=== PATIENT | male | born 1975 | race American Indian/Alaskan Native ===

== ENCOUNTER 2018-12-30 02:37 | Emergency (ER) | payer SELFPAY ==
--- NOTE | 2018-12-30 03:05 | Emergency Department Report ---
ED Neuro Deficit HPI - General Chief Complaint: Altered Mental Status Stated Complaint: POSS STROKE Time Seen by Provider: 12/30/18 02:43 Source: EMS Mode of arrival: Stretcher Limitations: Other - History of Present Illness Initial Comments: 43-year-old male presents to the ED for possible stroke. At approximately 2 PM yesterday, 13 hrs ago, patient came home from work and noticed the patient had slurred speech. She states he reported that he was having trouble with his vision and could not see properly while he was driving home from work. EMS was called around 5 PM, however patient refused transport. EMS was called again approximately one hour ago because patient fell down, states he is unable to walk, felt off balance. states pt was stumbling as he tried to walk to the bathroom. He also complained of numbness to the left arm and leg, which he currently denies. Patient denies extremity numbness. Reports nausea and vomiting. -: hour(s) (13) Location: speech, ataxia Presenting Symptoms: Present: Blurred/Loss of Vision, Unable to Speak Clearly History of same: No Place: home Severity: severe Quality: constant Improves With: none Worsens With: none On Anticoagulants: No Associated Symptoms: headaches Treatments Prior to Arrival: none - Related Data Allergies/Adverse Reactions: Allergies Allergy/AdvReac Type Severity Reaction Status Date / Time No Known Allergies Allergy Verified 12/30/18 05:16 ED Review of Systems ROS: Stated complaint: POSS STROKE Other details as noted in HPI Comment: All other systems reviewed and negative Eyes: vision change Respiratory: denies: shortness of breath Cardiovascular: denies: chest pain Gastrointestinal: nausea, vomiting Neurological: headache, numbness, abnormal gait ED Past Medical Hx - Social History Smoking Status: Never Smoker ED Neuro Physical Exam - General Limitations: Other General appearance: alert Suspected Stroke: Yes - Head Head exam: Present: atraumatic, normocephalic - Eye Eye exam: Present: normal appearance, PERRL, EOMI - ENT ENT exam: Present: mucous membranes moist - Neck Neck exam: Present: normal inspection - Respiratory Respiratory exam: Present: normal lung sounds bilaterally. Absent: respiratory distress - GI/Abdominal GI/Abdominal exam: Present: soft. Absent: distended, tenderness - Extremities Exam Extremities exam: Present: normal inspection - NIHSS Assessment Interval: Baseline 1a. Level of Consciousness: arousable/minor stimuli 1b. LOC Questions: answers both correctly 1c. LOC Commands: performs tasks correctly 2. Best Gaze: normal 3. Visual: no visual loss 4. Facial Palsy: normal symmetrical movement 5b. Motor Arm Right: no drift 5a. Motor Arm Left: no drift 6a. Motor Leg Left: no drift 6b. Motor Leg Right: no drift 7. Limb Ataxia: absent 8. Sensory: normal 9. Best Language: no aphasia 10. Dysarthria: mild/moderate dysarthria 11. Extinction/Inattention: no abnormality Total Score: 2 Stroke Severity: Minor Stroke - Psychiatric Psychiatric exam: Present: normal affect, normal mood - Skin Skin exam: Present: warm, dry, intact, normal color ED Course Vital Signs 12/30/18 12/30/18 12/30/18 02:53 03:01 03:15 Pulse Rate 95 H 93 H Respiratory 20 15 Rate Blood Pressure 148/98 148/98 142/104 O2 Sat by Pulse 97 Oximetry - Consultations Consultation #1: 12/30/18 03:55 Spoke w/ [facility] neurologist, Dr Salgado, for transfer. States will review pt's scan and call back 12/30/18 04:18 Spoke again w/ Dr Salgado. States no beds available at [facility], but he is speaking to the hospitalist at [facility] in order to transfer there. Will call back. 12/30/18 05:07 Pt has been accepted at [facility] by Dr Rivera. Awaiting bed assignment. - Lab Data Result diagrams: 12/30/18 03:02 12/30/18 03:02 Lab Results 12/30/18 12/30/18 12/30/18 Range/Units 03:02 03:02 03:02 WBC 14.9 H (4.5-11.0) K/mm3 RBC 5.87 H (3.65-5.03) M/mm3 Hgb 17.6 H (11.8-15.2) gm/dl Hct 50.0 H (35.5-45.6) % MCV 85 (84-94) fl MCH 30 (28-32) pg MCHC 35 H (32-34) % RDW 15.1 (13.2-15.2) % Plt Count 285 (140-440) K/mm3 Lymph % (Auto) 7.9 L (13.4-35.0) % [place] % (Auto) 7.0 (0.0-7.3) % Eos % (Auto) 0.3 (0.0-4.3) % Baso % (Auto) 0.6 (0.0-1.8) % Lymph # 1.2 (1.2-5.4) K/mm3 [place] # 1.0 H (0.0-0.8) K/mm3 Eos # 0.1 (0.0-0.4) K/mm3 Baso # 0.1 (0.0-0.1) K/mm3 Seg Neutrophils % 84.2 H (40.0-70.0) % Seg Neutrophils # 12.5 H (1.8-7.7) K/mm3 PT 12.3 (12.2-14.9) Sec. INR 0.94 (0.87-1.13) APTT 27.9 (24.2-36.6) Sec. Sodium 137 (137-145) mmol/L Potassium 3.8 (3.6-5.0) mmol/L Chloride 94.1 L (98-107) mmol/L Carbon Dioxide 28 (22-30) mmol/L Anion Gap 19 mmol/L BUN 12 (9-20) mg/dL Creatinine 1.0 (0.8-1.5) mg/dL Estimated GFR > 60 ml/min BUN/Creatinine Ratio 12 % Glucose 193 H (75-100) mg/dL Calcium 10.1 (8.4-10.2) mg/dL Total Creatine Kinase (55-170) units/L CK-MB (CK-2) (0.0-4.0) ng/mL CK-MB (CK-2) Rel Index (0-4) Troponin T < 0.010 (0.00-0.029) ng/mL 12/30/18 Range/Units 03:06 WBC (4.5-11.0) K/mm3 RBC (3.65-5.03) M/mm3 Hgb (11.8-15.2) gm/dl Hct (35.5-45.6) % MCV (84-94) fl MCH (28-32) pg MCHC (32-34) % RDW (13.2-15.2) % Plt Count (140-440) K/mm3 Lymph % (Auto) (13.4-35.0) % [place] % (Auto) (0.0-7.3) % Eos % (Auto) (0.0-4.3) % Baso % (Auto) (0.0-1.8) % Lymph # (1.2-5.4) K/mm3 [place] # (0.0-0.8) K/mm3 Eos # (0.0-0.4) K/mm3 Baso # (0.0-0.1) K/mm3 Seg Neutrophils % (40.0-70.0) % Seg Neutrophils # (1.8-7.7) K/mm3 PT (12.2-14.9) Sec. INR (0.87-1.13) APTT (24.2-36.6) Sec. Sodium (137-145) mmol/L Potassium (3.6-5.0) mmol/L Chloride (98-107) mmol/L Carbon Dioxide (22-30) mmol/L Anion Gap mmol/L BUN (9-20) mg/dL Creatinine (0.8-1.5) mg/dL Estimated GFR ml/min BUN/Creatinine Ratio % Glucose (75-100) mg/dL Calcium (8.4-10.2) mg/dL Total Creatine Kinase 87 (55-170) units/L CK-MB (CK-2) < 1.0 (0.0-4.0) ng/mL CK-MB (CK-2) Rel Index 1.1 (0-4) Troponin T (0.00-0.029) ng/mL - EKG Data -: EKG Interpreted by Tx EKG shows normal: sinus rhythm, axis, intervals, QRS complexes Rate: normal Interpretation: nonspecific ST-T wave edgar - Radiology Data Radiology results: report reviewed, image reviewed - Medical Decision Making 43-year-old male with bilateral cerebellar infarcts. Patient seen and evaluated by teleneurologist, who feels the patient should be transferred to another facility that has neurosurgery available, due to the risk of edema and herniation with this type of stroke. Spoke w/ neurologist at [facility], Dr Salgado, who has arranged transfer to [facility], as no beds available at [facility]. Patient has been re-assessed multiple times. No change in mental status. Awaiting transport at this time. - Differential Diagnosis ischemic CVA, hemorrhagic CVA, migraine PETERSON Critical care attestation.: If time is entered above; I have spent that time in minutes in the direct care of this critically ill patient, excluding procedure time. ED Disposition Clinical Impression: Cerebellar stroke Disposition: DC/TX-70 ANOTHER TYPE HLTHCARE Is pt being admited?: No Condition: Stable Referrals: MICHELLE PAYAN MD [Primary Care Provider] - 3-5 Days Time of Disposition: 05:38
--- NOTE | 2018-12-30 03:10 | Cat Scan Report ---
CT head/brain wo con INDICATION / CLINICAL INFORMATION: Neuro-deficits <6hrs or sx present upon awakening; CODE STROKE [phone]. TECHNIQUE: All CT scans at this location are performed using CT dose reduction for ALARA by means of automated e xposure control. COMPARISON: None available. FINDINGS: There is patchy low density in the superior cerebellum bilaterally with mild sulcal effacement. No in tracranial hemorrhage is seen. No other focal lesion is identified. The calvarium is intact. The visu alized paranasal sinuses and mastoid air cells are clear. IMPRESSION: Bilateral acute superior cerebellar infarcts without intracranial hemorrhage. This code stroke examination was discussed with Dr. Heaton in the emergency room at 2:03 AM. Signer Name: Javier Travis MD Signed: 12/30/2018 3:06 AM Workstation Name: [id number]
[2018-12-30 03:15] LABS: Basophils # (Auto) 0.1 K/mm3 (0.0-0.1); Basophils % (Auto) 0.6 % (0.0-1.8); Eosinophils # (Auto) 0.1 K/mm3 (0.0-0.4); Eosinophils % (Auto) 0.3 % (0.0-4.3); Hemoglobin 17.6 gm/dl (11.8-15.2); Lymphocytes # (Auto) 1.2 K/mm3 (1.2-5.4); Lymphocytes % (Auto) 7.9 % (13.4-35.0); Mean Corpuscular HGB Conc 35 % (32-34); Mean Corpuscular Volume 85 fl (84-94); Platelet Count 285 K/mm3 (140-440); Red Blood Count 5.87 M/mm3 (3.65-5.03); Red Cell Distribution Width 15.1 % (13.2-15.2)
[2018-12-30 03:27] LABS: INR 0.94 (0.87-1.13); Partial Thromboplastin Time 27.9 Sec. (24.2-36.6)
[2018-12-30 03:29] LABS: BUN/Creatinine Ratio 12; Blood Urea Nitrogen 12 mg/dL (9-20); Calcium 10.1 mg/dL (8.4-10.2); Hemolysis Index 3
--- NOTE | 2018-12-30 03:36 | Emergency Department Report ---
ED Neuro Deficit HPI - General Chief Complaint: Altered Mental Status Stated Complaint: POSS STROKE Time Seen by Provider: 12/30/18 02:43 Source: EMS Mode of arrival: Stretcher Limitations: Other - History of Present Illness Initial Comments: [facility] Date of Service: 12/30/2018 02:29:58 Impression: Posterior Circulation Mechanism of Stroke: Not Clear Metrics: Last Known Well: 12/29/2018 14:00:00 [employer] Notification Time: 12/30/2018 02:29:11 Arrival Time: 12/30/2018 02:37:00 Stamp Time: 12/30/2018 02:29:58 Time First Login Attempt: 12/30/2018 02:40:00 Video Start Time: 12/30/2018 02:40:00 Symptoms: Dysarthria, fall NIHSS Start Assessment Time: 12/30/2018 02:55:00 Patient is not a candidate for tPA. Patient was not deemed candidate for tPA thrombolytics because of Last Well Known above 4.5 hours. Video End Time: 12/30/2018 03:01:00 CT head was reviewed. ER physician notified of the decision on thrombolytics management. Comments: 43 yo with B sup cerebellar strokes. NIHSS 1, but strokes noted on CT. No tPA due to time, no JERO due to changes on CT. Admit to ICU for frequent neuro checks and monitoring due to stroke location, young age and risk for edema. Likely optimal to be at facility with neurosurgery available as decompensation from edema could require emergent decompressive surgery. Our recommendations are outlined below. Recommendations: Start Antiplatelet Therapy Daily Initiate Aspirin 325 MG Daily Recommended Scan: MRI Head Without Contrast MRA Head and Neck Without Contrast When Available - Stroke Protocol Echocardiogram - Transthoracic Echocardiogram Lipid Panel to Be Obtained, if Not Done in the Last Three Months Therapies: Physical Therapy, Occupational Therapy, Speech Therapy Assessment When Applicable Dysphaghia Screen: Swallow Evaluation, Bedside DVT prophylaxis: Lovenox or LMW Heparin Disposition: Sign Out Sign Out: Discussed with Emergency Department Provider History of Present Illness: Patient is a 44 years old Male. Patient was brought by EMS for symptoms of Dysarthria, fall 43 yo who reported onset of slurred speech at about 1400, while at work. On way home from work also reported blurred vision. EMS called after arrived home at 1700, he refused transport at that time. reported to ED team noting patient staggering this evening, and after a fall EMS recalled for transport. CT head was reviewed. Examination: 1A: Level of Consciousness - Alert; keenly responsive + 0 1B: Ask Month and Age - Both Questions Right + 0 1C: Blink Eyes & Squeeze Hands - Performs Both Tasks + 0 2: Test Horizontal Extraocular Movements - Normal + 0 3: Test Visual Nettles - No Visual Loss + 0 4: Test Facial Palsy (Use Grimace if Obtunded) - Normal symmetry + 0 5A: Test Left Arm Motor Drift - No Drift for 10 Seconds + 0 5B: Test Right Arm Motor Drift - No Drift for 10 Seconds + 0 6A: Test Left Leg Motor Drift - No Drift for 5 Seconds + 0 6B: Test Right Leg Motor Drift - No Drift for 5 Seconds + 0 7: Test Limb Ataxia (FNF/Heel-Snider) - No Ataxia + 0 8: Test Sensation - Normal; No sensory loss + 0 9: Test Language/Aphasia - Normal; No aphasia + 0 10: Test Dysarthria - Mild-Moderate Dysarthria: Slurring but can be understood + 1 11: Test Extinction/Inattention - No abnormality + 0 NIHSS Score: 1 Patient was informed the Neurology Consult would happen via TeleHealth consult by way of interactive audio and video telecommunications and consented to receiving care in this manner. Due to the immediate potential for life-threatening deterioration due to underlying acute neurologic illness, I spent 35 minutes providing critical care. This time includes time for face to face visit via telemedicine, review of medical records, imaging studies and discussion of findings with providers, the patient and/or family. Dr Morgan Frias [employer] Location: speech, ataxia History of same: No Place: home Severity: severe Quality: constant Improves With: none Worsens With: none On Anticoagulants: No Treatments Prior to Arrival: none - Related Data Allergies/Adverse Reactions: Allergies Allergy/AdvReac Type Severity Reaction Status Date / Time No Known Allergies Allergy Unverified 12/30/18 02:43 ED Review of Systems ROS: Stated complaint: POSS STROKE Other details as noted in HPI Eyes: vision change Respiratory: denies: shortness of breath Cardiovascular: denies: chest pain Gastrointestinal: denies: vomiting Neurological: headache, numbness, abnormal gait ED Past Medical Hx - Past Medical History Previous Medical History?: Yes Hx Hypertension: Yes - Surgical History Past Surgical History?: No - Social History Smoking Status: Never Smoker ED Neuro Physical Exam - General Limitations: Other General appearance: alert Suspected Stroke: Yes - NIHSS Assessment Interval: Baseline 1a. Level of Consciousness: alert/keenly responsive 1b. LOC Questions: answers both correctly 1c. LOC Commands: performs tasks correctly 2. Best Gaze: normal 3. Visual: no visual loss 4. Facial Palsy: normal symmetrical movement 5b. Motor Arm Right: no drift 5a. Motor Arm Left: no drift 6a. Motor Leg Left: no drift 6b. Motor Leg Right: no drift 7. Limb Ataxia: absent 8. Sensory: normal 9. Best Language: no aphasia 10. Dysarthria: mild/moderate dysarthria 11. Extinction/Inattention: no abnormality Total Score: 1 Stroke Severity: Minor Stroke ED Course Vital Signs 12/30/18 12/30/18 12/30/18 02:53 03:01 03:15 Pulse Rate 95 H 93 H Respiratory 20 15 Rate Blood Pressure 148/98 148/98 142/104 O2 Sat by Pulse 97 Oximetry - Lab Data Result diagrams: 12/30/18 03:02 12/30/18 03:02 Lab Results 12/30/18 12/30/18 12/30/18 Range/Units 03:02 03:02 03:02 WBC 14.9 H (4.5-11.0) K/mm3 RBC 5.87 H (3.65-5.03) M/mm3 Hgb 17.6 H (11.8-15.2) gm/dl Hct 50.0 H (35.5-45.6) % MCV 85 (84-94) fl MCH 30 (28-32) pg MCHC 35 H (32-34) % RDW 15.1 (13.2-15.2) % Plt Count 285 (140-440) K/mm3 Lymph % (Auto) 7.9 L (13.4-35.0) % [place] % (Auto) 7.0 (0.0-7.3) % Eos % (Auto) 0.3 (0.0-4.3) % Baso % (Auto) 0.6 (0.0-1.8) % Lymph # 1.2 (1.2-5.4) K/mm3 [place] # 1.0 H (0.0-0.8) K/mm3 Eos # 0.1 (0.0-0.4) K/mm3 Baso # 0.1 (0.0-0.1) K/mm3 Seg Neutrophils % 84.2 H (40.0-70.0) % Seg Neutrophils # 12.5 H (1.8-7.7) K/mm3 PT 12.3 (12.2-14.9) Sec. INR 0.94 (0.87-1.13) APTT 27.9 (24.2-36.6) Sec. Sodium 137 (137-145) mmol/L Potassium 3.8 (3.6-5.0) mmol/L Chloride 94.1 L (98-107) mmol/L Carbon Dioxide 28 (22-30) mmol/L Anion Gap 19 mmol/L BUN 12 (9-20) mg/dL Creatinine 1.0 (0.8-1.5) mg/dL Estimated GFR > 60 ml/min BUN/Creatinine Ratio 12 % Glucose 193 H (75-100) mg/dL Calcium 10.1 (8.4-10.2) mg/dL Troponin T < 0.010 (0.00-0.029) ng/mL Critical care attestation.: If time is entered above; I have spent that time in minutes in the direct care of this critically ill patient, excluding procedure time. ED Disposition Clinical Impression: Cerebellar stroke Disposition: DC-09 OP ADMIT IP TO THIS HOSP Is pt being admited?: Yes Does the pt Need Aspirin: Yes Condition: Stable
[2018-12-30 03:43] LABS: Creatine Kinase MB < 1.0 ng/mL (0.0-4.0)
[2018-12-30] MEDS ORDERED: ZOFRAN IV ONE (03:53)
[2018-12-30] MEDS ORDERED: MORPHINE ONE (05:12)
[2018-12-30 06:22] VITALS: BP 130/90
== END 2018-12-30 06:40 | disposition other institution (70) ==
LOC: ED 02:37
DX: I63.9 Cerebral infarction, unspecified (principal)
CPT/HCPCS: 36415; 70450; 80048; 82550; 82553; 82962; 84484; 85025; 85610; 85730; 93005; 93010; 96374; 99285; J2270; J2405